=== PATIENT | male | born 1975 | race Caucasian/White ===

== ENCOUNTER 2023-05-17 11:14 | Emergency (ER) | payer SELFPAY ==
--- NOTE | ~2023-05-17 | XR_ITS ---
XR wrist RT min 3V 05/17/2023 12:01 Indication: Right wrist pain after fall Procedure: 4 views right wrist Comparison: No prior studies for comparison. Findings: There is a healed fifth metacarpal fracture. There is an old chronic ulnar styloid fracture . There is an acute nondisplaced radial styloid fracture. There is mild polyarticular osteoarthritis. Impression: 1: Acute nondisplaced radial styloid fracture. Reviewed, dictated and finalized at location L. WELDER Impression: 1: Acute nondisplaced radial styloid fracture.
--- NOTE | ~2023-05-17 | XR_ITS ---
[[id number] ] INDICATION: Left rib pain TECHNIQUE: Frontal projection of the upper left ribs, frontal projection of the lower left ribs, obli que projection of all the left ribs, frontal inspiratory chest x-ray for interpretation. FINDINGS: There is acute nondisplaced left 11th rib fracture. There are no soft tissue abnormality se en. The lungs are clear. IMPRESSION: 1: Acute nondisplaced left 11th rib fracture. Reviewed, dictated and finalized at location L. N DE RINDER
--- NOTE | 2023-05-17 11:27 | ED.FALL ---
HPI - Fall General Chief Complaint: Fall Stated Complaint: right wrist/left lower ribs injury Source: patient and RN notes reviewed Mode of arrival: ambulatory Limitations: no limitations History of Present Illness HPI Narrative: Patient is a 48-year-old male who [facility] a fall off a ladder. Patient states that he fell approximately 6 ft from a ladder when he was cleaning out the gutters. Patient states that he landed on his left posterior ribs at the base of the ladder. He denies hitting head, loss of consciousness, neck pain, midline back pain. patient states that he also believes he may have attempted to catch is self with his right wrist. He reports tenderness to the right wrist with moderate swelling and decreased range of motion. He is neurovascularly intact distally. His respirations are nonlabored at this time. He does not appear in any acute distress. Related Data Allergies Allergy/AdvReac Type Severity Reaction Status Date / Time No Known Allergies Allergy Verified 05/17/23 11:33 Review of Systems Review of Systems: CONSTITUTIONAL: Denies fever, chills, or sweats. EYES: Denies visual changes, redness, or discharge. ENT: Denies otalgia and sore throat CARDIOVASCULAR: Denies chest pain, palpitations, or edema. RESPIRATORY: Denies cough or dyspnea. GASTROINTESTINAL: Denies abdominal pain, nausea, vomiting, or diarrhea. GENITOURINARY: Denies dysuria or hematuria. SKIN: Denies rash or itching. MUSCULOSKELETAL: Denies neck pain. back pain, myalgia. Reports right wrist and left rib pain. NEUROLOGIC: Denies headache, numbness, or weakness. Pertinent positives per HPI. PMFSH Comments At the time of my signature, I reviewed and agree with the nursing past medical, surgical, social, and family history. There is no relevant family history pertinent to the patient complaint. Exam Narrative: GENERAL: This is a well-nourished, well-developed patient, in no apparent distress. HEAD: normocephalic, atraumatic. EYES: PERRL. Sclera clear/white. Vision is grossly intact. EARS: External ears normal, auditory canals clear and without drainage, TMs normal without perforation. Hearing grossly intact. NOSE: External nose normal with no obvious nasal discharge, nares without redness, no rhinorrhea. THROAT: Mucous membranes moist, posterior pharynx clear. NECK: Neck supple, non-tender without lymphadenopathy, masses or thyromegaly. CARDIOVASCULAR: Regular rate and rhythm without murmurs, gallops, or rubs. CHEST: Left posterior rib tenderness. RESPIRATORY: Clear to auscultation. Breath sounds equal bilaterally. No wheezes, rales, or rhonchi. GASTROINTESTINAL: Abdomen soft, non-tender, nondistended. Bowel sounds are active. No hepato-splenomegaly, or palpable masses. No guarding. SKIN: warm, intact with no suspicious lesions or rash, good texture and turgor. NEURO: awake, alert, and oriented to person, place and time. There were no obvious focal neurologic abnormalities. EXTREMITIES: Right wrist tenderness and swelling. Decreased range of motion. Neurovascular and motor status intact distally. BACK: Nontender without deformity or crepitance. No flank tenderness. Course Course Level of Care: [facility] Visit Vital Signs Vital signs: Vital Signs Temperature 98.1 F 05/17/23 11:44 Pulse Rate 74 05/17/23 11:44 Respiratory Rate 20 05/17/23 11:44 Blood Pressure 154/86 H 05/17/23 11:44 Pulse Oximetry 100 05/17/23 11:44 Oxygen Delivery Room Air 05/17/23 11:44 Temperature 98.1 F 05/17/23 11:44 Pulse Rate 74 05/17/23 11:44 Respiratory Rate 20 05/17/23 11:44 Blood Pressure 154/86 H 05/17/23 11:44 Pulse Oximetry 100 05/17/23 11:44 Oxygen Delivery Room Air 05/17/23 11:44 Reviewed Procedures Orthopedic Splinting/Casting Injury #1: Splinting/Casting Date: 05/17/23 Splinting/Casting Time: 12:34 Side: right Upper Extremity Injury Location
[2023-05-17 11:44] VITALS: BP 154/86; PULSE 74; RESP 20; TEMP 36.7; O2SAT 100
--- NOTE | 2023-05-17 12:35 | PC.NURSE ---
incentive spirometer given and taught.
== END 2023-05-17 12:52 | disposition home or self-care (01) ==
PROVIDERS: Emergency Provider Nurse Practitioner
DX: S52.514A Nondisplaced fracture of right radial styloid process, initial encounter for closed fracture (principal); S22.32XA Fracture of one rib, left side, initial encounter for closed fracture; W11.XXXA Fall on and from ladder, initial encounter
CPT/HCPCS: 29125; 71101; 73110; 99214; A4565; G0463